=== PATIENT | female | born 1975 | race African-American/Black ===

== ENCOUNTER 2017-02-09 13:04 | Emergency (ER) | payer MEDICAID ==
[~2017-02-09] VITALS: Ht 170.2 cm; Wt 86.2 kg
[~2017-02-09 13:04] MED LIST: AMLO10TA4 PO; CELL5 PO; METO-300 PO; PRAV20TA57 PO; PROG1 PO
[2017-02-09 14:22] LABS: HEMATOCRIT. 26.3 % (36.0-48.0); HEMOGLOBIN. 8.6 g/dL (12.0-16.0); MEAN CORPUSCULAR HEMOGLOBIN 26.5 pg (28.0-32.0); MEAN CORPUSCULAR VOLUME 81.3 fL (81.0-99.0); PLATELET 334 x1000/uL (130-400); RED BLOOD CELL COUNT 3.23 mill/uL (4.2-5.4); RED CELL DISTRIBUTION WIDTH 16.9 % (11.6-14.6)
[2017-02-09 14:29] LABS: INR 1.2; PARTIAL THROMBOPLASTIN TIME 30.9 sec (24.0-34.0); PROTHROMBIN TIME 12.5 sec
[2017-02-09 14:34] LABS: CARBON DIOXIDE 25 mEq/L (21-32); CHLORIDE 96 mEq/L (98-107)
[2017-02-09] MEDS ORDERED: LIDOCAINE HCL 1% 20ML VIAL (Pyxis) INJ ONE ×2 (14:36→15:30)
[2017-02-09] MEDS ORDERED: SODIUM BICARBONATE 4% (2.4MEQ) 5ML VIAL IV ONE (14:37)
[2017-02-09] MEDS ORDERED: CEFAZOLIN 1000MG PREMIX 50 ML IV ONE ×2 (14:55→15:45)
[2017-02-09] MEDS ORDERED: FENTANYL CITRATE/PF 50MCG/ML 2ML VIAL ONE (15:00)
[2017-02-09] MEDS ORDERED: IOHEXOL-300 50 ML BOTTLE IV ONE (15:09)
[2017-02-09 15:22] VITALS: BP 170/101
[2017-02-09 15:39] LABS: PLATELET ESTIMATE NORMAL
[2017-02-09] MEDS ORDERED: FENTANYL CITRATE/PF 50MCG/ML 2ML VIAL IV ONE (15:45)
[2017-02-09] MEDS ORDERED: CEFAZOLIN 1000MG PREMIX 50 ML IV NR (16:15)
[2017-02-09] MEDS ORDERED: FENTANYL CITRATE/PF 50MCG/ML 2ML VIAL IV NR (16:15)
[2017-02-09 16:42] VITALS: BP 156/74
[2017-02-21] MEDS ORDERED: CINA30 PO (11:15)
[2017-02-21] MEDS ORDERED: P20 PO (11:15)
[2017-02-21] MEDS ORDERED: PRED1TAB PO (18:12)
[2017-02-21] MEDS ORDERED: PHOSLO PO (18:12)
== END 2017-02-09 17:43 | disposition home or self-care (01) ==
LOC: ER 14:31 → CANBEDREQ 19:30
DX: T82.41XA Breakdown (mechanical) of vascular dialysis catheter, initial encounter (principal); I12.9 Hypertensive chronic kidney disease with stage 1 through stage 4 chronic kidney disease, or unspecified chronic kidney disease; N18.9 Chronic kidney disease, unspecified; Z88.8 Allergy status to other drugs, medicaments and biological substances; Z94.0 Kidney transplant status
CPT/HCPCS: 36415; 36558; 36589; 71010; 75827; 76937; 77001; 80053; 84484; 85025; 85610; 85730; 93005; 96365; 99152; 99153; 99285; C1725; C1750; C1769; J0690; J1642; J3010; J3490; Q9967; Z7610; 96375

== ENCOUNTER 2017-02-17 09:56 | Emergency (ER) | payer MEDICAID ==
[~2017-02-17] VITALS: Ht 170.2 cm; Wt 86.8 kg
[2017-02-17] MEDS ORDERED: SODIUM BICARBONATE 4% (2.4MEQ) 5ML VIAL IV ONE (11:24)
[2017-02-17] MEDS ORDERED: LIDOCAINE HCL 1% 20ML VIAL (Pyxis) INJ ONE (11:24)
[2017-02-17 11:27] LABS: BASOPHILS % 1.3 % (0.0-2.0); EOSINOPHILS % 3.1 % (0.0-5.0); HEMATOCRIT. 24.7 % (36.0-48.0); HEMOGLOBIN. 7.8 g/dL (12.0-16.0); LYMPHOCYTES % 10.4 % (20.0-50.0); MEAN CORPUSCULAR HEMOGLOBIN 25.6 pg (28.0-32.0); MEAN CORPUSCULAR VOLUME 81.1 fL (81.0-99.0); MEAN PLATELET VOLUME 7.6 fl (7.4-10.4); MONOCYTES % 9.5 % (2.0-8.0); NEUTROPHILS % 75.7 % (40.0-76.0); PLATELET 253 x1000/uL (130-400); RED BLOOD CELL COUNT 3.05 mill/uL (4.2-5.4); RED CELL DISTRIBUTION WIDTH 16.6 % (11.6-14.6)
[2017-02-17 11:50] LABS: INR 1.2; PROTHROMBIN TIME 12.5 sec
[2017-02-17 11:51] LABS: CHLORIDE 99 mEq/L (98-107)
[2017-02-17 12:03] LABS: CARBON DIOXIDE 31 mEq/L (21-32); TROPONIN I < 0.02 ng/mL (0.00-0.04)
[2017-02-17 15:13] VITALS: BP 159/79
[2017-02-21] MEDS ORDERED: P20 PO (11:15)
[2017-02-21] MEDS ORDERED: CINA30 PO (11:15)
[2017-02-21] MEDS ORDERED: PRED1TAB PO (18:12)
[2017-02-21] MEDS ORDERED: PHOSLO PO (18:12)
== END 2017-02-17 15:40 | disposition home or self-care (01) ==
LOC: ER 10:57
DX: T82.41XA Breakdown (mechanical) of vascular dialysis catheter, initial encounter (principal); I12.0 Hypertensive chronic kidney disease with stage 5 chronic kidney disease or end stage renal disease; N18.6 End stage renal disease; Z99.2 Dependence on renal dialysis; Z94.0 Kidney transplant status; Z88.8 Allergy status to other drugs, medicaments and biological substances
CPT/HCPCS: 36415; 36581; 71010; 77001; 80053; 84484; 85025; 85610; 99285; C1750; C1769; J1642; J3490; J7050; Z7610

== ENCOUNTER 2017-02-23 02:36 | Emergency (ER) | payer MEDICAID ==
[~2017-02-23] VITALS: Ht 170.2 cm; Wt 83.9 kg
[~2017-02-23 02:36] MED LIST changes: -CELL5 PO; +CINA30 PO; +PHOSLO PO; +PRED1TAB PO; -PROG1 PO
[2017-02-23] MEDS ORDERED: MORPHINE SULFATE 4 MG/ML CPJ (NOT FOR IM USE) IV STA (03:52)
[2017-02-23] MEDS ORDERED: ONDANSETRON HCL 4MG/2ML VIAL IV STA (03:52)
[2017-02-23 04:12] LABS: EOSINOPHILS % 5.7 % (0.0-5.0); HEMATOCRIT. 25.3 % (36.0-48.0); HEMOGLOBIN. 8.3 g/dL (12.0-16.0); LYMPHOCYTES % 6.9 % (20.0-50.0); MEAN CORPUSCULAR HEMOGLOBIN 26.7 pg (28.0-32.0); MEAN CORPUSCULAR VOLUME 81.6 fL (81.0-99.0); MEAN PLATELET VOLUME 7.9 fl (7.4-10.4); MONOCYTES % 10.8 % (2.0-8.0); NEUTROPHILS % 75.6 % (40.0-76.0); PLATELET 225 x1000/uL (130-400); RED BLOOD CELL COUNT 3.11 mill/uL (4.2-5.4); RED CELL DISTRIBUTION WIDTH 16.1 % (11.6-14.6)
[2017-02-23 04:23] LABS: CARBON DIOXIDE 30 mEq/L (21-32); CHLORIDE 94 mEq/L (98-107)
[2017-02-23 06:26] VITALS: BP 162/106
== END 2017-02-23 06:52 | disposition home or self-care (01) ==
LOC: ER 02:36
DX: R07.81 Pleurodynia (principal); R06.02 Shortness of breath; I10 Essential (primary) hypertension; Z99.2 Dependence on renal dialysis; Z98.890 Other specified postprocedural states
CPT/HCPCS: 36415; 71010; 80053; 85025; 93005; 96374; 96375; 99285; J2270; J2405; Z7610

== ENCOUNTER 2017-03-18 12:13 | Inpatient (IN) | payer MEDICARE, MEDICAID ==
[~2017-03-18] VITALS: Ht 170.2 cm; Wt 77.1 kg
[2017-03-18] VITALS (8 sets, daily range): BP systolic 145–170; BP diastolic 11–113
[2017-03-18 12:47] LABS: HEMATOCRIT. 24.4 % (36.0-48.0); HEMOGLOBIN. 7.5 g/dL (12.0-16.0); MEAN CORPUSCULAR HEMOGLOBIN 25.4 pg (28.0-32.0); MEAN CORPUSCULAR VOLUME 82.7 fL (81.0-99.0); MEAN PLATELET VOLUME 6.7 fl (7.4-10.4); PLATELET 293 x1000/uL (130-400); RED BLOOD CELL COUNT 2.95 mill/uL (4.2-5.4); RED CELL DISTRIBUTION WIDTH 18.9 % (11.6-14.6)
[2017-03-18 12:53] LABS: CHLORIDE 102 mEq/L (98-107)
[2017-03-18 12:55] LABS: INR 1.1; PROTHROMBIN TIME 11.8 sec
[2017-03-18 13:02] LABS: CARBON DIOXIDE 28 mEq/L (21-32)
[2017-03-18 13:06] LABS: PLATELET ESTIMATE NORMAL
[2017-03-18] MEDS ORDERED: LORAZEPAM 2MG/ML CPJ IV PRN (13:30)
[2017-03-18] MEDS ORDERED: ONDANSETRON HCL 4MG/2ML VIAL IV PRN (13:30)
[2017-03-18] MEDS ORDERED: HYDROMORPHONE HCL/PF 2MG/ML CPJ IV PRN (13:30)
[2017-03-18] MEDS ORDERED: ACETAMINOPHEN 325MG TABLET PO PRN (13:30)
[2017-03-18] MEDS: CLONIDINE 0.1MG TABLET PO PRN (16:50)
[2017-03-18] MEDS ORDERED: ENOXAPARIN 30MG/0.3ML SYR SUBCUT SCH (18:00)
[2017-03-19] VITALS: BP 148/97
[2017-03-19 00:17] VITALS: BP 147/70
[2017-03-19 04:00] VITALS: BP 162/105
[2017-03-19] MEDS: CLONIDINE 0.1MG TABLET PO PRN (04:29)
[2017-03-19 07:23] LABS: BASOPHILS % 0.7 % (0.0-2.0); EOSINOPHILS % 2.4 % (0.0-5.0); HEMATOCRIT. 28.7 % (36.0-48.0); HEMOGLOBIN. 9.3 g/dL (12.0-16.0); LYMPHOCYTES % 10.5 % (20.0-50.0); MEAN CORPUSCULAR HEMOGLOBIN 27.1 pg (28.0-32.0); MEAN CORPUSCULAR VOLUME 83.9 fL (81.0-99.0); MEAN PLATELET VOLUME 7.1 fl (7.4-10.4); MONOCYTES % 9.6 % (2.0-8.0); NEUTROPHILS % 76.8 % (40.0-76.0); PLATELET 269 x1000/uL (130-400); RED BLOOD CELL COUNT 3.42 mill/uL (4.2-5.4); RED CELL DISTRIBUTION WIDTH 18.7 % (11.6-14.6)
[2017-03-19 08:00] VITALS: BP 141/98
[2017-03-19 12:00] VITALS: BP 150/103
== END 2017-03-19 15:16 | disposition home or self-care (01) | DRG 811 ==
LOC: ER 13:02 → 7WST 13:22 → ENRESERV 15:22
PROVIDERS: ADMIT Internal Medicine Nephrology; ATTEND Internal Medicine Nephrology
PROC: 30233N1 Transfusion of Nonautologous Red Blood Cells into Peripheral Vein, Percutaneous Approach (ICD-10-PCS; 2017-03-18)
PROC: 5A1D00Z (ICD-10-PCS; principal; 2017-03-19)
DX: D64.89 Other specified anemias (principal); N18.6 End stage renal disease; I12.0 Hypertensive chronic kidney disease with stage 5 chronic kidney disease or end stage renal disease; Z94.0 Kidney transplant status; Z91.041 Radiographic dye allergy status; Z88.8 Allergy status to other drugs, medicaments and biological substances; Z91.048 Other nonmedicinal substance allergy status; Z79.899 Other long term (current) drug therapy; Z99.2 Dependence on renal dialysis
CPT/HCPCS: 36415; 80048; 80053; 85025; 85610; 86850; 86900; 86920; 93005; 99285; J7030; P9016

== ENCOUNTER → 2017-04-06 | Outpatient (CLI) | payer MEDICARE, MEDICAID | END | disposition home or self-care (01) | LOC: LAB 10:22 | PROVIDERS: ATTEND Internal Medicine Nephrology | DX: N18.6 End stage renal disease (principal); E87.5 Hyperkalemia | CPT/HCPCS: 36415; 84132 ==

== ENCOUNTER 2017-04-28 09:36 | Emergency (ER) | payer MEDICARE, MEDICAID ==
[~2017-04-28] VITALS: Ht 170.2 cm; Wt 79.0 kg
[2017-04-28 11:12] LABS: BASOPHILS % 0.6 % (0.0-2.0); HEMATOCRIT. 33.5 % (36.0-48.0); HEMOGLOBIN. 10.9 g/dL (12.0-16.0); LYMPHOCYTES % 14.4 % (20.0-50.0); MEAN CORPUSCULAR HEMOGLOBIN 26.7 pg (28.0-32.0); MEAN CORPUSCULAR VOLUME 82.2 fL (81.0-99.0); MEAN PLATELET VOLUME 8.4 fl (7.4-10.4); MONOCYTES % 10.5 % (2.0-8.0); NEUTROPHILS % 72.5 % (40.0-76.0); PLATELET 173 x1000/uL (130-400); RED BLOOD CELL COUNT 4.08 mill/uL (4.2-5.4); RED CELL DISTRIBUTION WIDTH 18.5 % (11.6-14.6)
[2017-04-28 11:29] LABS: INR 1.1; PARTIAL THROMBOPLASTIN TIME 29.9 sec (23.4-31.0); PROTHROMBIN TIME 11.3 sec (9.4-11.6)
[2017-04-28] MEDS ORDERED: SODIUM BICARBONATE 4% (2.4MEQ) 5ML VIAL IV ONE (13:37)
[2017-04-28] MEDS ORDERED: LIDOCAINE HCL 1% 20ML VIAL (Pyxis) INJ ONE (13:37)
[2017-04-28] MEDS ORDERED: CEFAZOLIN 1000MG PREMIX 50 ML IV ONE ×2 (13:55→14:15)
[2017-04-28] MEDS ORDERED: FENTANYL CITRATE/PF 50MCG/ML 2ML VIAL ONE (13:55)
[2017-04-28 13:57] VITALS: BP 175/108
[2017-04-28 14:01] VITALS: BP 175/108
[2017-04-28 14:07] VITALS: BP 178/106
[2017-04-28] MEDS ORDERED: FENTANYL CITRATE/PF 50MCG/ML 2ML VIAL IV ONE (14:15)
[2017-04-28 14:16] VITALS: BP 168/98
[2017-04-28 14:32] VITALS: BP 150/96
== END 2017-04-28 15:11 | disposition home or self-care (01) ==
LOC: ER 10:26
DX: Z45.2 Encounter for adjustment and management of vascular access device (principal); D64.9 Anemia, unspecified; E87.5 Hyperkalemia; I12.0 Hypertensive chronic kidney disease with stage 5 chronic kidney disease or end stage renal disease; N18.6 End stage renal disease; Z99.2 Dependence on renal dialysis; Z94.0 Kidney transplant status; Z91.041 Radiographic dye allergy status; Z88.8 Allergy status to other drugs, medicaments and biological substances
CPT/HCPCS: 36415; 36581; 77001; 80048; 85025; 85610; 85730; 96365; 96375; 99285; C1750; C1769; J0690; J3010; J3490; 99284

== ENCOUNTER 2017-05-31 10:05 | Emergency (ER) | payer MEDICARE, MEDICAID ==
[2017-05-31] VITALS (7 sets, daily range): BP systolic 142–181; BP diastolic 87–112
[~2017-05-31] VITALS: Ht 170.2 cm; Wt 83.8 kg
[~2017-05-31 10:05] MED LIST changes: -METO-300 PO; +METO-411 PO
[2017-05-31 11:16] LABS: EOSINOPHILS % 4.3 % (0.0-5.0); HEMATOCRIT. 29.7 % (36.0-48.0); HEMOGLOBIN. 9.6 g/dL (12.0-16.0); MEAN CORPUSCULAR HEMOGLOBIN 26.8 pg (28.0-32.0); MEAN CORPUSCULAR VOLUME 83.2 fL (81.0-99.0); MEAN PLATELET VOLUME 8.9 fl (7.4-10.4); NEUTROPHILS % 64.7 % (40.0-76.0); PLATELET 177 x1000/uL (130-400); RED BLOOD CELL COUNT 3.57 mill/uL (4.2-5.4); RED CELL DISTRIBUTION WIDTH 17.8 % (11.6-14.6)
[2017-05-31 11:17] LABS: CHLORIDE 99 mEq/L (98-107)
[2017-05-31 11:18] LABS: INR 1.2
[2017-05-31 11:22] LABS: CARBON DIOXIDE 29 mEq/L (21-32)
[2017-05-31 11:33] LABS: PARTIAL THROMBOPLASTIN TIME 126.3 sec (23.4-31.0)
[2017-05-31] MEDS ORDERED: LIDOCAINE HCL 1% 20ML VIAL (Pyxis) INJ ONE (15:27)
[2017-05-31] MEDS ORDERED: SODIUM BICARBONATE 4% (2.4MEQ) 5ML VIAL IV ONE (15:27)
[2017-05-31] MEDS ORDERED: HEPARIN 1000 UNITS/ML 10ML ONE (15:27)
[2017-05-31] MEDS ORDERED: CEFAZOLIN 1000MG PREMIX 50 ML IV ONE ×2 (15:32→16:15)
[2017-05-31] MEDS ORDERED: FENTANYL CITRATE/PF 50MCG/ML 2ML VIAL ONE (15:46)
[2017-05-31] MEDS ORDERED: FENTANYL CITRATE/PF 50MCG/ML 2ML VIAL IV SCH (16:00)
== END 2017-05-31 18:00 | disposition home or self-care (01) ==
LOC: ER 10:05
DX: T82.898A Other specified complication of vascular prosthetic devices, implants and grafts, initial encounter (principal); I12.0 Hypertensive chronic kidney disease with stage 5 chronic kidney disease or end stage renal disease; N18.6 End stage renal disease; Z99.2 Dependence on renal dialysis; Z88.8 Allergy status to other drugs, medicaments and biological substances; Z91.048 Other nonmedicinal substance allergy status
CPT/HCPCS: 36415; 36581; 77001; 80053; 85025; 85610; 85730; 96365; 96375; 99152; 99153; 99285; C1750; C1769; J0690; J1644; J3010; J3490

== ENCOUNTER 2017-07-21 09:40 | Inpatient (IN) | payer MEDICARE, MEDICAID ==
[~2017-07-21] VITALS: Ht 170.2 cm; Wt 37.6 kg
[2017-07-21] VITALS (10 sets, daily range): BP systolic 116–139; BP diastolic 74–85
[2017-07-21 10:51] LABS: BASOPHILS % 1.2 % (0.0-2.0); EOSINOPHILS % 11.5 % (0.0-5.0); HEMATOCRIT. 34.5 % (36.0-48.0); HEMOGLOBIN. 11.7 g/dL (12.0-16.0); LYMPHOCYTES % 18.9 % (20.0-50.0); MEAN CORPUSCULAR HEMOGLOBIN 30.9 pg (28.0-32.0); MEAN CORPUSCULAR VOLUME 90.8 fL (81.0-99.0); MEAN PLATELET VOLUME 8.7 fl (7.4-10.4); MONOCYTES % 9.7 % (2.0-8.0); NEUTROPHILS % 58.7 % (40.0-76.0); PLATELET 150 x1000/uL (130-400); RED CELL DISTRIBUTION WIDTH 17.9 % (11.6-14.6)
[2017-07-21 11:01] LABS: CARBON DIOXIDE 27 mEq/L (21-32); CHLORIDE 95 mEq/L (98-107)
[2017-07-21 11:05] LABS: INR 1.1; PROTHROMBIN TIME 11.4 sec (9.4-11.6)
[2017-07-21] MEDS ORDERED: CEFAZOLIN 1000MG PREMIX 50 ML IV SCH (13:15)
[2017-07-21] MEDS ORDERED: SODIUM BICARBONATE 4% (2.4MEQ) 5ML VIAL IV ONE (13:16)
[2017-07-21] MEDS ORDERED: CEFAZOLIN 1000MG PREMIX 50 ML IV ONE (13:16)
[2017-07-21] MEDS ORDERED: LIDOCAINE HCL 1% 20ML VIAL (Pyxis) INJ ONE (13:16)
[2017-07-21] MEDS ORDERED: FENTANYL CITRATE/PF 50MCG/ML 2ML VIAL ONE (13:37)
[2017-07-21] MEDS ORDERED: FENTANYL CITRATE/PF 50MCG/ML 2ML VIAL IV SCH (13:45)
[2017-07-21] MEDS ORDERED: CINA60 PO (15:35)
[2017-07-21] MEDS: CALCIUM ACETATE 667MG CAPSULE PO SCH (18:56)
[2017-07-21] MEDS: METOPROLOL TARTRATE 100MG TABLET PO SCH (21:36)
[2017-07-22 04:00] VITALS: BP 95/60
[2017-07-22 08:00] VITALS: BP 107/66
[2017-07-22] MEDS ORDERED: AMLODIPINE 10MG TABLET PO SCH (09:00)
[2017-07-22] MEDS ORDERED: ENOXAPARIN 30MG/0.3ML SYR SUBCUT SCH (09:00)
[2017-07-22] MEDS ORDERED: CINACALCET HCL 60MG TABLET PO SCH (09:00)
[2017-07-22] MEDS: METOPROLOL TARTRATE 100MG TABLET PO SCH (09:00)
[2017-07-22] MEDS ORDERED: LISINOPRIL 10MG TABLET PO SCH (09:00)
[2017-07-22] MEDS: CALCIUM ACETATE 667MG CAPSULE PO SCH ×2 (09:50→12:30)
[2017-07-22 11:43] LABS: BASOPHILS % 0.7 % (0.0-2.0); EOSINOPHILS % 11.3 % (0.0-5.0); HEMATOCRIT. 36.6 % (36.0-48.0); HEMOGLOBIN. 12.3 g/dL (12.0-16.0); LYMPHOCYTES % 18.8 % (20.0-50.0); MEAN CORPUSCULAR HEMOGLOBIN 30.9 pg (28.0-32.0); MEAN CORPUSCULAR VOLUME 91.9 fL (81.0-99.0); MEAN PLATELET VOLUME 9.2 fl (7.4-10.4); NEUTROPHILS % 58.2 % (40.0-76.0); PLATELET 143 x1000/uL (130-400); RED BLOOD CELL COUNT 3.98 mill/uL (4.2-5.4); RED CELL DISTRIBUTION WIDTH 18.6 % (11.6-14.6)
[2017-07-22] MEDS ORDERED: SODIUM POLYSTYRENE SULFONATE 15 G/60 ML BOT PO NR (12:15)
== END 2017-07-22 12:49 | disposition left against medical advice (07) | DRG 314 ==
LOC: ER 10:16 → 7WST 11:43 → ENRESERV 12:58
PROVIDERS: ADMIT Internal Medicine Nephrology; ATTEND Internal Medicine Nephrology
PROC: 02PYX3Z Removal of Infusion Device from Great Vessel, External Approach (ICD-10-PCS; principal; 2017-07-21)
PROC: 5A1D70Z Performance of Urinary Filtration, Intermittent, Less than 6 Hours Per Day (ICD-10-PCS; 2017-07-21)
PROC: 06H033Z Insertion of Infusion Device into Inferior Vena Cava, Percutaneous Approach (ICD-10-PCS; 2017-07-21)
PROC: B5191ZA Fluoroscopy of Inferior Vena Cava using Low Osmolar Contrast, Guidance (ICD-10-PCS; 2017-07-21)
DX: T82.42XA Displacement of vascular dialysis catheter, initial encounter (principal); N18.6 End stage renal disease; I12.0 Hypertensive chronic kidney disease with stage 5 chronic kidney disease or end stage renal disease; E83.39 Other disorders of phosphorus metabolism; N25.81 Secondary hyperparathyroidism of renal origin; E87.5 Hyperkalemia; D63.8 Anemia in other chronic diseases classified elsewhere; Y83.8 Other surgical procedures as the cause of abnormal reaction of the patient, or of later complication, without mention of misadventure at the time of the procedure; Z53.21 Procedure and treatment not carried out due to patient leaving prior to being seen by health care provider; Z91.041 Radiographic dye allergy status; Z88.8 Allergy status to other drugs, medicaments and biological substances; Z91.048 Other nonmedicinal substance allergy status; Z99.2 Dependence on renal dialysis; Z79.52 Long term (current) use of systemic steroids; Z79.899 Other long term (current) drug therapy; Y92.89 Other specified places as the place of occurrence of the external cause
CPT/HCPCS: 36415; 36581; 77001; 80048; 80053; 85025; 85610; C1750; C1769; J0690; J1642; J1650; J3010; J3490; J7030

== ENCOUNTER 2017-08-24 11:17 | Emergency (ER) | payer MEDICARE, MEDICAID ==
[~2017-08-24] VITALS: Ht 170.2 cm; Wt 82.2 kg
[~2017-08-24 11:17] MED LIST changes: -CINA30 PO; +CINA60 PO
[2017-08-24 12:18] LABS: BASOPHILS % 1.3 % (0.0-2.0); EOSINOPHILS % 9.1 % (0.0-5.0); HEMATOCRIT. 28.4 % (36.0-48.0); HEMOGLOBIN. 9.5 g/dL (12.0-16.0); LYMPHOCYTES % 18.1 % (20.0-50.0); MEAN CORPUSCULAR HEMOGLOBIN 30.6 pg (28.0-32.0); MEAN CORPUSCULAR VOLUME 91.2 fL (81.0-99.0); MEAN PLATELET VOLUME 9.1 fl (7.4-10.4); MONOCYTES % 9.5 % (2.0-8.0); PLATELET 185 x1000/uL (130-400); RED BLOOD CELL COUNT 3.12 mill/uL (4.2-5.4); RED CELL DISTRIBUTION WIDTH 16.5 % (11.6-14.6)
[2017-08-24 12:27] LABS: CARBON DIOXIDE 33 mEq/L (21-32); CHLORIDE 96 mEq/L (98-107)
[2017-08-24 12:30] LABS: INR 1.1; PROTHROMBIN TIME 11.3 sec (9.4-11.6)
[2017-08-24 15:49] VITALS: BP 168/100
== END 2017-08-24 15:52 | disposition home or self-care (01) ==
LOC: ER 12:11
DX: L30.9 Dermatitis, unspecified (principal); I12.0 Hypertensive chronic kidney disease with stage 5 chronic kidney disease or end stage renal disease; N18.6 End stage renal disease; Z94.0 Kidney transplant status; Z99.2 Dependence on renal dialysis; Z88.8 Allergy status to other drugs, medicaments and biological substances
CPT/HCPCS: 36415; 80053; 83605; 85025; 85610; 87040; 99284

== ENCOUNTER 2017-10-23 08:52 | Emergency (ER) | payer MEDICARE, MEDICAID ==
[~2017-10-23] VITALS: Ht 170.2 cm; Wt 82.0 kg
[2017-10-23 09:12] VITALS: BP 149/99
[2017-10-23] MEDS ORDERED: FAMOTIDINE 20MG TABLET PO ONE (10:30)
[2017-10-23] MEDS ORDERED: DIPHENHYDRAMINE 50MG CAPSULE PO ONE (10:30)
== END 2017-10-23 11:38 | disposition home or self-care (01) ==
LOC: ER 09:06
DX: T78.40XA Allergy, unspecified, initial encounter (principal); T50.905A Adverse effect of unspecified drugs, medicaments and biological substances, initial encounter; Y92.89 Other specified places as the place of occurrence of the external cause; H57.9 Unspecified disorder of eye and adnexa; I12.0 Hypertensive chronic kidney disease with stage 5 chronic kidney disease or end stage renal disease; N18.6 End stage renal disease; Z99.2 Dependence on renal dialysis; Z91.041 Radiographic dye allergy status; Z88.8 Allergy status to other drugs, medicaments and biological substances
CPT/HCPCS: 99283; Q0163

== ENCOUNTER 2017-11-10 11:10 | Emergency (ER) | payer MEDICARE, MEDICAID ==
[~2017-11-10] VITALS: Ht 170.2 cm; Wt 82.0 kg
[2017-11-10] MEDS ORDERED: CLONIDINE 0.1MG TABLET PO ONE (12:30)
[2017-11-10 12:43] LABS: BASOPHILS % 0.9 % (0.0-2.0); EOSINOPHILS % 8.6 % (0.0-5.0); HEMATOCRIT. 27.8 % (36.0-48.0); LYMPHOCYTES % 18.4 % (20.0-50.0); MEAN CORPUSCULAR HEMOGLOBIN 28.8 pg (28.0-32.0); MEAN CORPUSCULAR VOLUME 89.2 fL (81.0-99.0); MEAN PLATELET VOLUME 7.5 fl (7.4-10.4); MONOCYTES % 10.1 % (2.0-8.0); PLATELET 256 x1000/uL (130-400); RED BLOOD CELL COUNT 3.11 mill/uL (4.2-5.4); RED CELL DISTRIBUTION WIDTH 17.6 % (11.6-14.6)
[2017-11-10 12:50] LABS: HCG SCREEN NEGATIVE
[2017-11-10 12:52] LABS: INR 1.1; PROTHROMBIN TIME 11.4 sec (9.4-11.6)
[2017-11-10 12:55] LABS: CHLORIDE 98 mEq/L (98-107)
[2017-11-10 14:21] VITALS: BP 159/84
== END 2017-11-10 14:21 | disposition home or self-care (01) ==
LOC: ER 11:13
DX: R04.0 Epistaxis (principal); R42 Dizziness and giddiness; I12.0 Hypertensive chronic kidney disease with stage 5 chronic kidney disease or end stage renal disease; N18.6 End stage renal disease; Z94.0 Kidney transplant status; Z99.2 Dependence on renal dialysis; Z88.8 Allergy status to other drugs, medicaments and biological substances; Z91.048 Other nonmedicinal substance allergy status
CPT/HCPCS: 36415; 71045; 80053; 84703; 85025; 85610; 99285